=== PATIENT | male | born 1960 | race Two or more races ===

== ENCOUNTER → 2019-11-01 | Outpatient (CLI) | payer OTHER ==
[~2019-11-01] MED LIST: CAPT12.52; CAPT25TA5 OR; GLYB5TAB66; GLYB5TAB8 OR; METF-370; METF1000 OR
[2019-11-01 08:07] LABS: Basophils # (auto) 0 uL; Eosinophils # (auto) 0.1 uL; Mean Corpuscular Hemoglobin 27.9 pg (28.0-32.0); Mean Corpuscular Hgb Conc. 34.3 g/dL (32.0-36.0); Monocytes # (auto) 0.4 uL; Monocytes % (auto) 8.6 % (0.0-12.0)
[2019-11-01 08:11] LABS: Basophils % (auto) 0.7 % (0.0-2.0); Eosinophils % (auto) 3.1 % (0.0-7.0); Hematocrit 51.6 % (41.0-53.0); Hemoglobin 17.7 g/dL (13.5-17.5); Lymphocytes # (auto) 1.3 uL; Lymphocytes % (auto) 30.1 % (10.0-50.0); Mean Corpuscular Volume 81.2 fL (80.0-100.0); Neutrophils # (auto) 2.6 uL; Neutrophils % (auto) 57.5 % (37.0-80.0); Nucleated Red Blood Cells % 0.6 %; Platelet Count (auto) 214 10^3/uL (140-450); Red Blood Cells 6.36 10^6/uL (4.5-5.90); Red Cell Distribution Width 16.5 % (11.8-14.3); White Blood Cell 4.5 10^3/uL (4.4-10.8)
[2019-11-01 08:30] LABS: Protein, Urine 30.7 mg/dL (0.0-11.9); Urine Bacteria NONE SEEN /hpf (None Seen); Urine Blood Negative /uL (Negative); Urine Specific Gravity 1.013 (1.001-1.035); Urine WBC <1 /hpf (0 - 3)
[2019-11-01 08:32] LABS: Albumin 3.5 g/dL (3.4-5.0); Potassium 4.4 mmol/L (3.5-5.1)
[2019-11-01 08:38] LABS: BUN/Creatinine Ratio 18.1; Bilirubin, Total 0.5 mg/dL (0.2-1.0)
== END | disposition home or self-care (01) ==
LOC: LAB 07:11
PROVIDERS: ATTEND Internal Medicine Nephrology
DX: E11.9 Type 2 diabetes mellitus without complications (principal); I10 Essential (primary) hypertension; N52.9 Male erectile dysfunction, unspecified; Z86.73 Personal history of transient ischemic attack (TIA), and cerebral infarction without residual deficits
CPT/HCPCS: 36415; 80053; 80061; 81001; 82570; 83036; 84156; 84403; 84439; 84443; 85025

== ENCOUNTER → 2020-03-26 | Outpatient (CLI) | payer OTHER ==
[2020-03-26 09:48] LABS: Basophils # (auto) 0 10 ^3/uL (0-0.2); Basophils % (auto) 0.6 % (0.0-2.0); Eosinophils # (auto) 0.2 10 ^3/uL (0-0.8); Eosinophils % (auto) 3.4 % (0.0-7.0); Hematocrit 45.2 % (41.0-53.0); Hemoglobin 15.4 g/dL (13.5-17.5); Lymphocytes # (auto) 1.4 10 ^3/uL (0.4-5.4); Lymphocytes % (auto) 30.1 % (10.0-50.0); Mean Corpuscular Hemoglobin 29.7 pg (28.0-32.0); Mean Corpuscular Hgb Conc. 33.9 g/dL (32.0-36.0); Mean Corpuscular Volume 87.5 fL (80.0-100.0); Monocytes # (auto) 0.4 10 ^3/uL (0-1.3); Monocytes % (auto) 8.7 % (0.0-12.0); Neutrophils # (auto) 2.7 10 ^3/uL (1.6-8.6); Neutrophils % (auto) 57.2 % (37.0-80.0); Nucleated Red Blood Cells % 0.1 %; Platelet Count (auto) 208 10^3/uL (140-450); Red Blood Cells 5.17 10^6/uL (4.5-5.90); Red Cell Distribution Width 13.2 % (11.8-14.3); White Blood Cell 4.7 10^3/uL (4.4-10.8)
[2020-03-26 09:56] LABS: Urine Amorphous Crystal FEW /hpf (None Seen); Urine Bacteria NONE SEEN /hpf (None Seen); Urine Blood Negative /uL (Negative); Urine Specific Gravity 1.019 (1.001-1.035); Urine Sperm PRESENT /hpf (None Seen); Urine WBC 1 /hpf (0 - 3)
[2020-03-26 10:10] LABS: Albumin 3.7 g/dL (3.4-5.0); Calcium 8.4 mg/dL (8.5-10.1); Potassium 3.9 mmol/L (3.5-5.1)
[2020-03-26 10:13] LABS: BUN/Creatinine Ratio 23.9; Bilirubin, Total 0.4 mg/dL (0.2-1.0); Total Protein 7.5 g/dL (6.4-8.2)
== END | disposition home or self-care (01) ==
LOC: LAB 09:20
PROVIDERS: ATTEND Internal Medicine Nephrology
DX: E11.22 Type 2 diabetes mellitus with diabetic chronic kidney disease (principal); I12.9 Hypertensive chronic kidney disease with stage 1 through stage 4 chronic kidney disease, or unspecified chronic kidney disease; N18.3 Chronic kidney disease, stage 3 (moderate)
CPT/HCPCS: 36415; 80053; 81001; 83036; 85025

== ENCOUNTER → 2020-07-10 | Outpatient (CLI) | payer OTHER ==
[2020-07-12 10:55] LABS: Hepatitis B Surface Antibody Negative
[2020-07-12 13:28] LABS: Hepatitis B Core IgM Negative; Hepatitis B Surface Antigen Negative (Negative)
== END | disposition home or self-care (01) ==
LOC: LAB 08:17
PROVIDERS: ATTEND Internal Medicine Nephrology
DX: E11.9 Type 2 diabetes mellitus without complications (principal); I10 Essential (primary) hypertension; Z86.19 Personal history of other infectious and parasitic diseases
CPT/HCPCS: 36415; 83036; 86703; 86705; 86706; 86803; 87340

== ENCOUNTER 2020-07-24 01:59 | Emergency (ER) | payer OTHER ==
[~2020-07-24] VITALS: Ht 185.4 cm; Wt 77.1 kg
[2020-07-24] MEDS ORDERED: ONDANSETRON HCL 4 MG/2 ML VIAL IV ONE (02:30)
[2020-07-24] MEDS ORDERED: MORPHINE SULFATE 4 MG/ML SYR/VIAL IV ONE (02:30)
[2020-07-24 03:47] LABS: Basophils # (auto) 0 10 ^3/uL (0-0.2); Basophils % (auto) 0.2 % (0.0-2.0); Eosinophils # (auto) 0 10 ^3/uL (0-0.8); Hematocrit 44.9 % (41.0-53.0); Hemoglobin 15.1 g/dL (13.5-17.5); Lymphocytes # (auto) 0.5 10 ^3/uL (0.4-5.4); Lymphocytes % (auto) 3.4 % (10.0-50.0); Mean Corpuscular Hemoglobin 29.5 pg (28.0-32.0); Mean Corpuscular Hgb Conc. 33.7 g/dL (32.0-36.0); Mean Corpuscular Volume 87.5 fL (80.0-100.0); Monocytes # (auto) 0.4 10 ^3/uL (0-1.3); Monocytes % (auto) 3.1 % (0.0-12.0); Neutrophils # (auto) 13.5 10 ^3/uL (1.6-8.6); Neutrophils % (auto) 93.3 % (37.0-80.0); Platelet Count (auto) 232 10^3/uL (140-450); Red Blood Cells 5.14 10^6/uL (4.5-5.90); Red Cell Distribution Width 13.6 % (11.8-14.3); White Blood Cell 14.4 10^3/uL (4.4-10.8)
[2020-07-24 04:07] LABS: INR 0.92 (0.9-1.15)
[2020-07-24 04:10] LABS: Chloride 104 mmol/L (98-107); Potassium 3.9 mmol/L (3.5-5.1); Sodium 134 mmol/L (136-145)
[2020-07-24 04:13] LABS: Urine Bacteria NONE SEEN /hpf (None Seen); Urine Blood Negative /uL (Negative); Urine Specific Gravity 1.017 (1.001-1.035); Urine WBC <1 /hpf (0 - 3)
[2020-07-24 04:19] LABS: Alanine Aminotransferase 22 U/L (16-61); Albumin 4.1 g/dL (3.4-5.0); Alkaline Phosphatase 72 U/L (45-117); Amylase 29 U/L (25-115); Anion Gap 11 (5-15); Aspartate Aminotransferase 16 U/L (15-37); BUN/Creatinine Ratio 20.4; Bilirubin, Total 0.6 mg/dL (0.2-1.0); Blood Urea Nitrogen 20 mg/dL (7-18); Calcium 8.7 mg/dL (8.5-10.1); Carbon Dioxide 19 mmol/L (21-32); GFR African American 100 mL/min; GFR Non-African American 82 mL/min; Glucose 239 mg/dL (74-106); Lipase 84 U/L (73-393); Magnesium 2.5 mg/dL (1.6-2.6); Total Protein 7.9 g/dL (6.4-8.2)
[2020-07-24 05:00] VITALS: BP 125/74
== END 2020-07-24 05:41 | disposition home or self-care (01) ==
LOC: ER 02:01
DX: K59.00 Constipation, unspecified (principal); E11.9 Type 2 diabetes mellitus without complications; E78.5 Hyperlipidemia, unspecified; I10 Essential (primary) hypertension; Z86.73 Personal history of transient ischemic attack (TIA), and cerebral infarction without residual deficits
CPT/HCPCS: 36415; 74176; 80053; 81001; 82150; 83605; 83690; 83735; 84484; 85025; 85610; 85730; 87040; 93005; 96374; 96375; 99285; J2270; J2405

== ENCOUNTER 2022-04-13 13:57 | Emergency (ER) | payer MEDICAID, OTHER ==
[~2022-04-13] VITALS: Ht 172.7 cm; Wt 87.7 kg
[2022-04-13] MEDS ORDERED: HYDROcodone-ACET 10/325MG TAB PO ONE (14:45)
[2022-04-13 16:52] LABS: Basophils # (auto) 0 10 ^3/uL (0-0.2); Basophils % (auto) 0.3 % (0.0-2.0); Eosinophils # (auto) 0 10 ^3/uL (0-0.8); Eosinophils % (auto) 0.5 % (0.0-7.0); Hematocrit 41.8 % (41.0-53.0); Hemoglobin 13.9 g/dL (13.5-17.5); Lymphocytes # (auto) 1.2 10 ^3/uL (0.4-5.4); Lymphocytes % (auto) 12.4 % (10.0-50.0); Mean Corpuscular Hgb Conc. 33.3 g/dL (32.0-36.0); Mean Corpuscular Volume 84.3 fL (80.0-100.0); Monocytes # (auto) 0.6 10 ^3/uL (0-1.3); Neutrophils % (auto) 80.8 % (37.0-80.0); Red Blood Cells 4.96 10^6/uL (4.5-5.90); Red Cell Distribution Width 13.4 % (11.8-14.3); White Blood Cell 9.9 10^3/uL (4.4-10.8)
[2022-04-13 17:08] LABS: Albumin 3.4 g/dL (3.4-5.0); Calcium 8.4 mg/dL (8.5-10.1); Potassium 4.8 mmol/L (3.5-5.1)
[2022-04-13 17:12] LABS: BUN/Creatinine Ratio 20.6
[2022-04-13 17:16] LABS: Bilirubin, Total 0.5 mg/dL (0.2-1.0); Total Protein 7.8 g/dL (6.4-8.2)
[2022-04-13] MEDS ORDERED: CEPH-322 PO (18:46)
[2022-04-13 19:31] VITALS: BP 167/84
== END 2022-04-13 19:30 | disposition home or self-care (01) ==
LOC: ER 13:57
DX: L03.116 Cellulitis of left lower limb (principal); I10 Essential (primary) hypertension; E11.9 Type 2 diabetes mellitus without complications; E78.5 Hyperlipidemia, unspecified; Z86.73 Personal history of transient ischemic attack (TIA), and cerebral infarction without residual deficits; Z79.899 Other long term (current) drug therapy
CPT/HCPCS: 36415; 73700; 80053; 85025; 93971

== ENCOUNTER 2022-06-19 11:09 | Emergency (ER) | payer MEDICAID, OTHER ==
[~2022-06-19] VITALS: Ht 185.4 cm; Wt 88.0 kg
[~2022-06-19 11:09] MED LIST changes: +CEPH-322 PO
[2022-06-19] MEDS ORDERED: HYDROcodone-ACET 5/325MG TAB PO ONE (11:45)
[2022-06-19] MEDS ORDERED: METHOCARBAMOL 500 MG TAB PO ONE (11:45)
[2022-06-19] MEDS ORDERED: KETOROLAC TROMETH 60MG/2ML VIAL IM ONE (11:45)
[2022-06-19 13:51] VITALS: BP 173/86
[2022-06-19] MEDS ORDERED: ACET-1304 PO ×2 (14:04→17:37)
[2022-06-19] MEDS ORDERED: METH500T22 PO ×2 (14:04→17:37)
[2022-06-19] MEDS ORDERED: IBUP800T27 PO ×2 (14:04→17:37)
== END 2022-06-19 17:25 | disposition home or self-care (01) ==
LOC: EDBD 11:09 → ER 11:09
DX: S16.1XXA Strain of muscle, fascia and tendon at neck level, initial encounter (principal); S63.502A Unspecified sprain of left wrist, initial encounter; S43.402A Unspecified sprain of left shoulder joint, initial encounter; S80.01XA Contusion of right knee, initial encounter; E11.9 Type 2 diabetes mellitus without complications; E78.5 Hyperlipidemia, unspecified; I10 Essential (primary) hypertension; Z86.73 Personal history of transient ischemic attack (TIA), and cerebral infarction without residual deficits; V43.62XA Car passenger injured in collision with other type car in traffic accident, initial encounter; Y93.89 Activity, other specified; Y92.488 Other paved roadways as the place of occurrence of the external cause; Y99.8 Other external cause status
CPT/HCPCS: 70450; 72125; 73030; 73110; 73130; 73562; 82962; 96372; 99284; J1885

== ENCOUNTER 2023-12-28 10:02 | Day surgery (SDC) | payer MEDICAID ==
[~2023-12-28] VITALS: Ht 185.4 cm; Wt 93.0 kg
[2023-12-28] VITALS (10 sets, daily range): BP systolic 119–159; BP diastolic 67–85; PULSE 57–61; RESP 10–15; TEMP 98.1; O2SAT 93–96
[~2023-12-28 10:02] MED LIST changes: +ACET-1304 PO; +AMLO1TAB23 PO; -CAPT12.52; -CAPT25TA5 OR; -CEPH-322 PO; +CEPH250C PO; -GLYB5TAB66; -GLYB5TAB8 OR; +HYDR25TA4 PO; +HYDR25TA88 PO; +IBUP-1456 PO; +INSU1INJ19 SC; +LISI40TA16 PO; +MELA1DRO PO; -METF-370; -METF1000 OR; +METH-1181 PO
[2023-12-28] MEDS ORDERED: IODIXANOL 320MG/ML 100ML BTL IV ONE (10:52)
[2023-12-28] MEDS ORDERED: LIDOCAINE 2%HCL (LOCAL ANESTH.) INJ 20ML MDV ONE (10:52)
[2023-12-28] MEDS ORDERED: SODIUM CHL 0.9% 50 ML ONE (11:14)
[2023-12-28] MEDS ORDERED: ANGIOMAX 250 MG VIAL IV ONE (11:14)
[2023-12-28] MEDS ORDERED: MIDAZOLAM HCL 2MG/2ML 2ml VIAL (1mg/ml) ONE (11:14)
[2023-12-28] MEDS ORDERED: fentaNYL CITRATE 100 MCG/2 ML VL ONE (11:14)
[2023-12-28] MEDS ORDERED: ASPirin 81 mg TAB ONE (12:28)
[2023-12-28] MEDS ORDERED: CLOPIDOGREL BISULFATE 75 MG TAB ONE (12:30)
[2023-12-28] MEDS ORDERED: HYDROmorphone HCL 2 MG/ML VL/or syr ONE (12:38)
[2023-12-28] MEDS ORDERED: CLOPIDOGREL BISULFATE 75 MG TAB PO ONE (12:52)
[2023-12-28] MEDS: CLOPIDOGREL BISULFATE 75 MG TAB ONE (12:59)
== END 2023-12-28 15:18 | disposition home or self-care (01) ==
LOC: CATH 10:02
PROVIDERS: ATTEND Internal Medicine
DX: E11.51 Type 2 diabetes mellitus with diabetic peripheral angiopathy without gangrene (principal); I70.92 Chronic total occlusion of artery of the extremities; I73.9 Peripheral vascular disease, unspecified; I10 Essential (primary) hypertension; E78.00 Pure hypercholesterolemia, unspecified; Z86.73 Personal history of transient ischemic attack (TIA), and cerebral infarction without residual deficits; Z79.899 Other long term (current) drug therapy; Z98.890 Other specified postprocedural states; Z82.49 Family history of ischemic heart disease and other diseases of the circulatory system
CPT/HCPCS: 36247; 75716; 93005; C1725; C1760; C1769; C1887; C1894; C9764; C9772; J0583; J1170; J1644; J2250; J3010; Q9967; 99152; 99153

== ENCOUNTER 2024-03-13 23:46 | Inpatient (IN) | payer MEDICAID ==
[~2024-03-13] VITALS: Ht 185.4 cm; Wt 97.6 kg
[~2024-03-13 23:46] MED LIST changes: +ASPI1CHW5 PO; +CLOP75TA70 PO; +SEMA4INJ SC
[2024-03-14] VITALS (9 sets, daily range): BP systolic 142–149; BP diastolic 71–76; PULSE 73–91; RESP 18–20; TEMP 97.5–97.9; O2SAT 92–95
[2024-03-14] MEDS: ALBUTEROL SULF 2.5 MG/0.5ML(0.5%) NEB SOLN NEB ONE (00:24)
[2024-03-14] MEDS: IPRATROPIUM BROM 0.5 MG/2.5ML INH SOL NEB ONE (00:24)
[2024-03-14 00:34] LABS: Basophils # (auto) 0 10 ^3/uL (0-0.2); Basophils % (auto) 0.2 % (0.0-2.0); Eosinophils # (auto) 0 10 ^3/uL (0-0.8); Eosinophils % (auto) 0.2 % (0.0-7.0); Hematocrit 42.8 % (41.0-53.0); Hemoglobin 14.8 g/dL (13.5-17.5); Lymphocytes # (auto) 0.5 10 ^3/uL (0.4-5.4); Mean Corpuscular Hemoglobin 29.5 pg (28.0-32.0); Mean Corpuscular Hgb Conc. 34.5 g/dL (32.0-36.0); Mean Corpuscular Volume 85.4 fL (80.0-100.0); Monocytes # (auto) 0.6 10 ^3/uL (0-1.3); Monocytes % (auto) 3.7 % (0.0-12.0); Neutrophils # (auto) 14.2 10 ^3/uL (1.6-8.6); Neutrophils % (auto) 92.9 % (37.0-80.0); Red Blood Cells 5.01 10^6/uL (4.5-5.90); Red Cell Distribution Width 13.5 % (11.8-14.3); White Blood Cell 15.3 10^3/uL (4.4-10.8)
[2024-03-14 00:56] LABS: Alanine Aminotransferase 16 U/L (7-40); Albumin 4.3 g/dL (3.2-4.8); Alkaline Phosphatase 88 U/L (46-116); Anion Gap 10 (5-15); Aspartate Aminotransferase 13 U/L (13-40); BUN/Creatinine Ratio 17.2 (10.0-20.0); Blood Urea Nitrogen 17 mg/dL (9-23); Calcium 9.5 mg/dL (8.7-10.4); Carbon Dioxide 20 mmol/L (20-30); Chloride 104 mmol/L (98-107); Glucose 298 mg/dL (74-106); Lipase 30 U/L (12-53); Potassium 3.9 mmol/L (3.5-5.1); Sodium 134 mmol/L (136-145)
[2024-03-14 00:57] LABS: Bilirubin, Total 0.4 mg/dL (0.2-1.0); Total Protein 7.5 g/dL (5.7-8.2)
[2024-03-14 01:04] LABS: Lactic Acid w/Reflex 2.8 mmol/L (0.4-2.0)
[2024-03-14 01:12] LABS: Rapid Influenza A Negative (Negative); Rapid Influenza B Negative (Negative)
[2024-03-14 01:13] LABS: COVID19 ANTIGEN SOFIA FIA NEGATIVE (NEGATIVE)
[2024-03-14] MEDS: DexAMETHasone SOD PHOS 10MG/1ML VIAL INJ IM ONE (03:17)
[2024-03-14] MEDS: ONDANSETRON HCL 4 MG/2 ML VIAL IM ONE (03:18)
[2024-03-14] MEDS: ACETAMINOPHEN 500 MG TAB PO ONE (03:21)
[2024-03-14] MEDS: SODIUM CHLORIDE 0.9% 1,000 ML IV ONE ×2 (03:35→06:40)
[2024-03-14] MEDS: cefTRIAXone 1GM/50ML D5W 50 ML IV ONE (03:59)
[2024-03-14 04:17] LABS: Urine Bacteria None Seen /hpf (None Seen)
[2024-03-14 04:26] LABS: Urine Blood Negative /uL (Negative); Urine Clarity Clear (Clear); Urine Color Light-Yellow (Yellow); Urine Protein, UAD 1+ (Negative); Urine Specific Gravity 1.021 (1.001-1.035); Urine Urobilinogen Normal (Negative); Urine WBC 1 /hpf (0 - 3)
[2024-03-14] MEDS ORDERED: ACETAMINOPHEN 325 MG TAB PO PRN (05:45)
[2024-03-14] MEDS ORDERED: NITROGLYCERIN 0.4 MG SL TAB SL PRN (05:45)
[2024-03-14] MEDS ORDERED: ALBUTEROL SULF 2.5 MG/0.5ML(0.5%) NEB SOLN NEB PRN (05:45)
[2024-03-14] MEDS ORDERED: IPRATROPIUM BROM 0.5 MG/2.5ML INH SOL NEB PRN (05:45)
[2024-03-14] MEDS ORDERED: MORPHINE SULFATE INJ 2 MG/ml SYRG IV PRN ×2 (05:45)
[2024-03-14] MEDS: AZITHROMYCIN 250 MG TAB PO ONE (05:53)
[2024-03-14] MEDS ORDERED: DEXTROSE (50%) 50ML SYRG IV PRN (06:15)
[2024-03-14] MEDS: HYDROcodone-ACET 5/325MG TAB PO PRN (06:39)
[2024-03-14] MEDS: ENOXAPARIN SOD 100 MG/1 ML SYRINGE SC SCH (06:40)
[2024-03-14] MEDS: ACCU-CHEK COMFORT CURVE STRIP VI SCH (06:51)
[2024-03-14] MEDS: InsuLIN REG 1unit/0.01ml Soln (100units/ml) SC SCH (06:57)
[2024-03-14] MEDS: cefTRIAXone 1GM/50ML D5W 50 ML IV SCH (08:39)
[2024-03-14] MEDS: SODIUM CHLORIDE 0.9% 1,000 ML IV SCH (09:00)
[2024-03-14] MEDS: ASPirin 81 mg TAB PO SCH (09:59)
[2024-03-14] MEDS: AZITHROMYCIN 500MG/ 250ML 250 ML IV SCH (10:00)
[2024-03-14] MEDS: ATORVASTATIN 20 MG TAB PO SCH (10:00)
[2024-03-14 10:41] LABS: Lactic Acid w/Reflex 2.7 mmol/L (0.4-2.0)
[2024-03-14] MEDS ORDERED: FLUT0.05 NAS (14:00)
[2024-03-15] VITALS (7 sets, daily range): BP systolic 142–156; BP diastolic 70–79; PULSE 61–72; RESP 17–21; TEMP 97.4–98; O2SAT 92–98
[2024-03-15 06:52] LABS: Anion Gap 12 (5-15); Calcium 9.5 mg/dL (8.7-10.4); Carbon Dioxide 17 mmol/L (20-30); Chloride 104 mmol/L (98-107); Potassium 4.1 mmol/L (3.5-5.1); Sodium 133 mmol/L (136-145)
[2024-03-15 06:58] LABS: Glucose 238 mg/dL (74-106)
[2024-03-15 06:59] LABS: BUN/Creatinine Ratio 17.5 (10.0-20.0); Blood Urea Nitrogen 14 mg/dL (9-23)
[2024-03-15 07:12] LABS: Hematocrit 40.6 % (41.0-53.0); Hemoglobin 14.2 g/dL (13.5-17.5); Mean Corpuscular Hemoglobin 29.5 pg (28.0-32.0); Mean Corpuscular Hgb Conc. 34.9 g/dL (32.0-36.0); Mean Corpuscular Volume 84.6 fL (80.0-100.0); Red Cell Distribution Width 13.9 % (11.8-14.3); White Blood Cell 20.8 10^3/uL (4.4-10.8)
[2024-03-15 07:18] LABS: Band Neutrophils % (manual) 0; Basophils % (manual) 0 (0.0-2.0); Blast Cells 0; Eosinophils % (manual) 0 (0-7); Metamyelocytes % 0; Myelocytes % 0; Promyelocytes % 0; Reactive Lymphocytes 0
[2024-03-15 09:34] LABS: Lymphocytes % (manual) 2 (10.0-50.0); Monocytes % (manual) 5 (0-12); Platelet Estimate Adequate
[2024-03-15] MEDS ORDERED: FLUT1INH27 INH (13:14)
[2024-03-15] MEDS ORDERED: ALBU108A5 INH (13:20)
[2024-03-16] VITALS (10 sets, daily range): BP systolic 126–159; BP diastolic 68–79; PULSE 57–73; RESP 16–18; TEMP 97.4–98.7; O2SAT 90–98
[2024-03-16] MEDS: hydrALAZINE HCL 20 MG/ML VL IV PRN (06:22)
[2024-03-16 06:55] LABS: Basophils # (auto) 0.1 10 ^3/uL (0-0.2); Basophils % (auto) 0.7 % (0.0-2.0); Eosinophils # (auto) 0.1 10 ^3/uL (0-0.8); Eosinophils % (auto) 0.5 % (0.0-7.0); Hematocrit 43.4 % (41.0-53.0); Hemoglobin 15.1 g/dL (13.5-17.5); Lymphocytes # (auto) 1.7 10 ^3/uL (0.4-5.4); Lymphocytes % (auto) 17.9 % (10.0-50.0); Mean Corpuscular Hemoglobin 29.5 pg (28.0-32.0); Mean Corpuscular Hgb Conc. 34.9 g/dL (32.0-36.0); Mean Corpuscular Volume 84.5 fL (80.0-100.0); Monocytes # (auto) 0.5 10 ^3/uL (0-1.3); Monocytes % (auto) 5.6 % (0.0-12.0); Neutrophils # (auto) 7.3 10 ^3/uL (1.6-8.6); Neutrophils % (auto) 75.3 % (37.0-80.0); Nucleated Red Blood Cells % 0.1 %; Red Blood Cells 5.13 10^6/uL (4.5-5.90); Red Cell Distribution Width 13.5 % (11.8-14.3); White Blood Cell 9.8 10^3/uL (4.4-10.8)
[2024-03-16 06:56] LABS: Anion Gap 10 (5-15); Carbon Dioxide 24 mmol/L (20-30); Chloride 102 mmol/L (98-107); Potassium 3.9 mmol/L (3.5-5.1); Sodium 136 mmol/L (136-145)
[2024-03-16 06:57] LABS: Calcium 9.4 mg/dL (8.7-10.4)
[2024-03-16 07:02] LABS: BUN/Creatinine Ratio 16.1 (10.0-20.0); Blood Urea Nitrogen 14 mg/dL (9-23); Glucose 205 mg/dL (74-106)
[2024-03-16] MEDS: DOCUSATE SOD 100 MG CAP PO PRN (10:24)
[2024-03-16] MEDS: ONDANSETRON HCL 4 MG/2 ML VIAL IV PRN (12:40)
[2024-03-17] VITALS (10 sets, daily range): BP systolic 148–160; BP diastolic 79–87; PULSE 68–76; RESP 16–18; TEMP 97.9–98.9; O2SAT 90–98
[2024-03-17 07:13] LABS: Basophils # (auto) 0 10 ^3/uL (0-0.2); Basophils % (auto) 0.7 % (0.0-2.0); Eosinophils # (auto) 0.1 10 ^3/uL (0-0.8); Eosinophils % (auto) 1.3 % (0.0-7.0); Hemoglobin 14.9 g/dL (13.5-17.5); Lymphocytes # (auto) 1.5 10 ^3/uL (0.4-5.4); Lymphocytes % (auto) 23.9 % (10.0-50.0); Mean Corpuscular Hemoglobin 29.3 pg (28.0-32.0); Mean Corpuscular Hgb Conc. 34.8 g/dL (32.0-36.0); Mean Corpuscular Volume 84.3 fL (80.0-100.0); Monocytes # (auto) 0.4 10 ^3/uL (0-1.3); Monocytes % (auto) 7.1 % (0.0-12.0); Neutrophils # (auto) 4.1 10 ^3/uL (1.6-8.6); Nucleated Red Blood Cells % 0.1 %; Red Cell Distribution Width 13.6 % (11.8-14.3); White Blood Cell 6.1 10^3/uL (4.4-10.8)
[2024-03-17 07:22] LABS: Chloride 104 mmol/L (98-107); Potassium 3.8 mmol/L (3.5-5.1); Sodium 134 mmol/L (136-145)
[2024-03-17 07:23] LABS: Anion Gap 6 (5-15); Carbon Dioxide 24 mmol/L (20-30)
[2024-03-17 07:28] LABS: Glucose 230 mg/dL (74-106)
[2024-03-17 07:29] LABS: BUN/Creatinine Ratio 16.9 (10.0-20.0); Blood Urea Nitrogen 14 mg/dL (9-23)
[2024-03-17 09:14] LABS: Hepatitis B Surface Antigen Negative (Negative)
[2024-03-17 09:35] LABS: Hepatitis C Antibody Negative (Negative)
[2024-03-18] VITALS (7 sets, daily range): BP systolic 113–149; BP diastolic 70–81; PULSE 68–89; RESP 18; TEMP 97.4–98.4; O2SAT 92–96
[2024-03-18 05:55] LABS: Basophils # (auto) 0 10 ^3/uL (0-0.2); Basophils % (auto) 0.5 % (0.0-2.0); Eosinophils # (auto) 0.1 10 ^3/uL (0-0.8); Eosinophils % (auto) 1.6 % (0.0-7.0); Hematocrit 43.8 % (41.0-53.0); Hemoglobin 15.6 g/dL (13.5-17.5); Lymphocytes # (auto) 1.4 10 ^3/uL (0.4-5.4); Lymphocytes % (auto) 20.8 % (10.0-50.0); Mean Corpuscular Hemoglobin 30.1 pg (28.0-32.0); Mean Corpuscular Hgb Conc. 35.7 g/dL (32.0-36.0); Mean Corpuscular Volume 84.4 fL (80.0-100.0); Monocytes # (auto) 0.5 10 ^3/uL (0-1.3); Monocytes % (auto) 7.6 % (0.0-12.0); Neutrophils # (auto) 4.6 10 ^3/uL (1.6-8.6); Neutrophils % (auto) 69.5 % (37.0-80.0); Nucleated Red Blood Cells % 0.1 %; Red Blood Cells 5.19 10^6/uL (4.5-5.90); Red Cell Distribution Width 13.6 % (11.8-14.3); White Blood Cell 6.6 10^3/uL (4.4-10.8)
[2024-03-18 06:04] LABS: Anion Gap 10 (5-15); Carbon Dioxide 21 mmol/L (20-30); Chloride 104 mmol/L (98-107); Potassium 3.8 mmol/L (3.5-5.1); Sodium 135 mmol/L (136-145)
[2024-03-18 06:05] LABS: Calcium 9.3 mg/dL (8.7-10.4)
[2024-03-18 06:10] LABS: Blood Urea Nitrogen 10 mg/dL (9-23); Glucose 226 mg/dL (74-106)
[2024-03-18] MEDS ORDERED: ATOR20TA50 PO (16:06)
[2024-03-18] MEDS ORDERED: ASPI-325 PO (16:06)
[2024-03-18] MEDS ORDERED: AUG875T PO (16:06)
== END 2024-03-18 17:00 | disposition home health service (06) | DRG 137 ==
LOC: ER 23:46 → TELE 03-14 06:13 → TELE-CENTR 03-14 06:13
PROVIDERS: ADMIT Nurse Practitioner Family; ATTEND Internal Medicine
DX: J15.69 Pneumonia due to other Gram-negative bacteria (principal); I21.A1 Myocardial infarction type 2; E11.51 Type 2 diabetes mellitus with diabetic peripheral angiopathy without gangrene; E86.0 Dehydration; J15.9 Unspecified bacterial pneumonia; E11.65 Type 2 diabetes mellitus with hyperglycemia; R09.02 Hypoxemia; Z20.822 Contact with and (suspected) exposure to COVID-19; E66.9 Obesity, unspecified; I10 Essential (primary) hypertension; K59.00 Constipation, unspecified; Z79.1 Long term (current) use of non-steroidal anti-inflammatories (NSAID); Z79.899 Other long term (current) drug therapy; Z86.73 Personal history of transient ischemic attack (TIA), and cerebral infarction without residual deficits; Z68.28 Body mass index [BMI] 28.0-28.9, adult; Z79.84 Long term (current) use of oral hypoglycemic drugs
CPT/HCPCS: 36415; 71045; 71250; 74176; 80048; 80053; 81001; 82962; 83036; 83605; 83690; 83880; 84484; 85007; 85025; 85027; 86803; 87040; 87086; 87340; 87426; 87804; 93005; 93306; 94640; 96365; 96366; 96367; 96372; G0378; J1100; J1815; J2405

== ENCOUNTER 2024-05-16 06:58 | Day surgery (SDC) | payer MEDICAID ==
[2024-05-16] VITALS (8 sets, daily range): BP systolic 128–164; BP diastolic 55–83; PULSE 61–65; RESP 10–14; TEMP 98; O2SAT 93–96
[~2024-05-16] VITALS: Ht 185.4 cm; Wt 88.5 kg
[~2024-05-16 06:58] MED LIST changes: +ALBU108A5 INH; +ATOR20TA50 PO; -CEPH250C PO; +FLUT1INH27 INH; +GABA-339 PO; -HYDR25TA4 PO; -HYDR25TA88 PO; -IBUP-1456 PO; -METH-1181 PO; -SEMA4INJ SC
[2024-05-16] MEDS ORDERED: ANGIOMAX 250 MG VIAL IV ONE (09:05)
[2024-05-16] MEDS ORDERED: fentaNYL CITRATE 100 MCG/2 ML VL ONE (09:06)
[2024-05-16] MEDS ORDERED: HEPARIN SODIUM (PORCINE) 5000 UNITS/ML 1ML VIAL ONE (09:06)
[2024-05-16] MEDS ORDERED: VERAPAMIL 2.5MG/ML INJ 2ML VIAL IV ONE (09:06)
[2024-05-16] MEDS ORDERED: IODIXANOL 320MG/ML 100ML BTL IV ONE (09:06)
[2024-05-16] MEDS ORDERED: LIDOCAINE 2%HCL (LOCAL ANESTH.) INJ 20ML MDV ONE (09:06)
[2024-05-16] MEDS ORDERED: SODIUM CHL 0.9% 0 ML ONE (09:06)
[2024-05-16] MEDS ORDERED: MIDAZOLAM HCL 2MG/2ML 2ml VIAL (1mg/ml) ONE (09:06)
== END 2024-05-16 12:32 | disposition home or self-care (01) ==
LOC: CATH 06:58
PROVIDERS: ATTEND Internal Medicine
DX: I25.10 Atherosclerotic heart disease of native coronary artery without angina pectoris (principal); E11.9 Type 2 diabetes mellitus without complications; E78.00 Pure hypercholesterolemia, unspecified; I73.9 Peripheral vascular disease, unspecified; I25.2 Old myocardial infarction; Z79.82 Long term (current) use of aspirin; Z79.01 Long term (current) use of anticoagulants; Z79.4 Long term (current) use of insulin; Z87.891 Personal history of nicotine dependence
CPT/HCPCS: 93458; C1769; C1894; J1644; J2250; J3010; J7030; Q9967; 99152

== ENCOUNTER 2024-09-05 15:02 | Inpatient (IN) | payer MEDICARE, MEDICAID ==
[~2024-09-05] VITALS: Ht 185.4 cm; Wt 86.5 kg
[2024-09-05] MEDS: SODIUM CHLORIDE 0.9% 1,000 ML IV ONE (03:14)
--- NOTE | 2024-09-05 16:37 | DVH ---
CHEST RADIOGRAPH Indication: sob Technique: Single frontal view of the chest was obtained COMPARISON: XY CHEST PORTABLE on DOS: 03/14/24 FINDINGS: Lines and Tubes: Sternal wires in place Lungs: Clear Pleura: No effusion. No pneumothorax. Cardiomediastinal contours: Unremarkable Bones: Unremarkable IMPRESSION: 1. No acute disease.
[2024-09-05 17:12] LABS: Basophils # (auto) 0 10 ^3/uL (0-0.2); Basophils % (auto) 0.5 % (0.0-2.0); Eosinophils # (auto) 0 10 ^3/uL (0-0.8); Eosinophils % (auto) 0.3 % (0.0-7.0); Hemoglobin 15.6 g/dL (13.5-17.5); Lymphocytes # (auto) 0.8 10 ^3/uL (0.4-5.4); Lymphocytes % (auto) 13.6 % (10.0-50.0); Mean Corpuscular Hemoglobin 28.8 pg (28.0-32.0); Mean Corpuscular Hgb Conc. 33.9 g/dL (32.0-36.0); Mean Corpuscular Volume 84.8 fL (80.0-100.0); Monocytes # (auto) 0.6 10 ^3/uL (0-1.3); Monocytes % (auto) 10.3 % (0.0-12.0); Neutrophils # (auto) 4.7 10 ^3/uL (1.6-8.6); Neutrophils % (auto) 75.3 % (37.0-80.0); Platelet Count (auto) 212 10^3/uL (140-450); Red Blood Cells 5.42 10^6/uL (4.5-5.90); Red Cell Distribution Width 14.8 % (11.8-14.3); White Blood Cell 6.2 10^3/uL (4.4-10.8)
[2024-09-05 17:18] LABS: Anion Gap 10 (5-15); Aspartate Aminotransferase 34 U/L (13-40); Carbon Dioxide 23 mmol/L (20-31); Potassium 4.6 mmol/L (3.5-5.1)
[2024-09-05 17:19] LABS: Bilirubin, Total 0.4 mg/dL (0.2-1.0)
[2024-09-05 17:32] LABS: Alanine Aminotransferase 45 U/L (7-40); Albumin 4.9 g/dL (3.2-4.8); Alkaline Phosphatase 118 U/L (46-116); Blood Urea Nitrogen 39 mg/dL (9-23); Chloride 97 mmol/L (98-107); Glucose 340 mg/dL (74-106); Sodium 130 mmol/L (136-145); Total Protein 8.4 g/dL (5.7-8.2)
--- NOTE | 2024-09-05 18:15 | ED.PDOC ---
History of Present Illness HPI Comments 64 y/o M presents with c/o generalized weakness and shortness of breath w/exertion for the past 3x days, today. Patient endorses on symptoms progressively worsening of the past 3x days since initial, unprovoked onset. He admits to recent Hx of 4xCABG that was performed at [facility] in [place], [place]. He denies any chest pain, palpitations, cough, or other associated symptoms or modifiers at this time. Chief Complaint: General Weakness Time Seen by MD: 16:20 Primary Care Provider: UNKNOWN Reviewed Notes: Nurses Notes, Medications, Allergies Allergies: Coded Allergies: NO KNOWN ALLERGIES (Unverified , 12/22/23) Home Meds Active Scripts Atorvastatin Calcium (ATORVASTATIN CALCIUM) 20 Mg Tab, 10 MG PO DAILY, #30 TAB Prov:RUPAL RAMIREZ MD 03/18/24 Acetaminophen (Tylenol Extra Strength) 500 Mg Tab, 1000 MG PO Q6HPRN PRN, #30 TAB Prov:RADHA SHAY MD 06/19/22 Reported Medications Gabapentin (Gabapentin) 600 Mg Tab, 600 MG PO TID for NEUROPATHY, MG 05/11/24 Albuterol Sulfate (Albuterol Sulfate Hfa) 108 Mcg/Act Aer, 1 PUFF INH QID PRN for COPD 03/15/24 Clopidogrel Bisulfate (CLOPIDOGREL) 75 Mg Tab, 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 03/15/24 Aspirin (Chewable Aspirin) 81 Mg Chw, 1 TAB PO DAILY for CAD 03/15/24 Fluticasone Furoate-Vilanterol (Fluticasone Furoate/Vilan 100-25 Mcg/Act) 1 Inh Inh, 1 PUFF INH DAILY 03/15/24 Melatonin (Melatonin) 5 Mg/Ml Jim, 5 MG PO HS PRN for FOR INSOMNIA 12/22/23 Lisinopril (Lisinopril) 40 Mg Tab, 1 TAB PO DAILY for HYPERTENSION 12/22/23 Amlodipine Besylate (Amlodipine Besylate) 10 Mg Tab, 1 TAB PO QPM for HYPERTENSION 12/22/23 Insulin Glargine (Basaglar Kwikpen) 100 Unit/Ml Inj, 50 UNIT SC DAILY for DIABETES 12/22/23 Information Source: Patient Mode of Arrival: Ambulatory Severity: Moderate Timing: Days Duration: Since onset Prehospital treatment: None Past Medical History PAST MEDICAL HISTORY: CVA, DM, High Lipids, HTN Surgical History: CABG Family History Family History: Reviewed,noncontributory to illness Social History Smoker: Non-Smoker Alcohol: Rarely Drugs: Denies Drug Use Lives In: Home Respiratory: reports: SOB with excertion Neurological: reports: weakness All Other Systems: Reviewed and Negative (negative unless otherwise stated above or in HPI) Physical Exam General Appearance: Mild Distress, Normal HEENT: Normal ENT Inspection, Pharynx Normal, TMs Normal Neck: Full Range of Motion, Non-Tender, Normal, Normal Inspection Respiratory: Chest Non-Tender, Lungs Clear, No Accessory Muscle Use, Normal Breath Sounds, Other (become short of breath with less than 20 steps) Cardiovascular: No Edema, No JVD, No Murmur, No Gallop, Normal Peripheral Pulses, Regular Rate/Rhythm Breast Exam: Deferred Gastrointestinal: No Organomegaly, Non Tender, No Pulsatile Mass, Normal Bowel Sounds, Soft Genitalia: Deferred Pelvic: Deferred Rectal: Deferred Extremities: No calf tenderness, Normal capillary refill, Normal inspection, Normal range of motion, Non-tender, No pedal edema Musculoskeletal : Apperance: Normal Neurologic: Alert, regional driver II-XII nml as Tested, No Motor Deficits, Normal Affect, Normal Mood, No Sensory Deficits Cerebellar Function: Normal Reflexes: Normal Skin: Dry, Normal Color, Warm Lymphatic: No Adenopathy Was a procedure done? Was a procedure done?: No Differential Dx Considerations may include: electrolyte imbalance, dehydration, URI, PNA, pleural effusions X-Ray, Labs, Meds, VS Vital Signs Date Time Temp Pulse Resp B/P (MAP) Pulse Ox O2 Delivery O2 Flow Rate FiO2 09/05/24 16:00 98.0 83 18 131/70 (90) 98 09/05/24 15:42 74 Lab Test 09/05/24 17:40 09/05/24 16:32 Range/Units Troponin I High Sensitivity 5 5 </=54 ng/L White Blood Count 6.2 4.4-10.8 10^3/uL Red Blood Count 5.42 4.5-5.90 10^6/uL Hemoglobin 15.6 13.5-17.5 g/dL Hematocrit 46.0 41.0-53.0 % Mean Corpuscular Volume 84.8 80.0-100.0 fL Mean Corpuscular Hemoglobin 28.8 28.0-32.0 pg Mean Corpuscular Hemoglobin Concent 33.9 32.0-36.0 g/dL Red Cell Distribution Width 14.8 H 11.8-14.3 % Platelet Count 212 140-450 10^3/uL Mean Platelet Volume 9.1 6.9-10.8 fL Neutrophils (%) (Auto) 75.3 37.0-80.0 % Lymphocytes (%) (Auto) 13.6 10.0-50.0 % Monocytes (%) (Auto) 10.3 0.0-12.0 % Eosinophils (%) (Auto) 0.3 0.0-7.0 % Basophils (%) (Auto) 0.5 0.0-2.0 % Neutrophils # (Auto) 4.7 1.6-8.6 10 ^3/uL Lymphocytes # (Auto) 0.8 0.4-5.4 10 ^3/uL Monocytes # (Auto) 0.6 0-1.3 10 ^3/uL Eosinophils # (Auto) 0 0-0.8 10 ^3/uL Basophils # (Auto) 0 0-0.2 10 ^3/uL Nucleated Red Blood Cells 0.0 % Sodium Level 130 L 136-145 mmol/L Potassium Level 4.6 3.5-5.1 mmol/L Chloride Level 97 L 98-107 mmol/L Carbon Dioxide Level 23 20-31 mmol/L Anion Gap 10 5-15 Blood Urea Nitrogen 39 H 9-23 mg/dL Creatinine 2.43 H 0.700-1.30 mg/dL Glomerular Filtration Rate Calc 29 >90 mL/min BUN/Creatinine Ratio 16.0 10.0-20.0 Serum Glucose 340 H 74-106 mg/dL Calcium Level 10.0 8.7-10.4 mg/dL Total Bilirubin 0.4 0.2-1.0 mg/dL Aspartate Amino Transferase (AST) 34 13-40 U/L Alanine Aminotransferase (ALT) 45 H 7-40 U/L Alkaline Phosphatase 118 H 46-116 U/L B-Type Natriuretic Peptide 29.95 0-100 pg/mL Total Protein 8.4 H 5.7-8.2 g/dL Albumin 4.9 H 3.2-4.8 g/dL [facility] [id number] [facility] [id number] Ph: [phone] DIAGNOSTIC IMAGING Diagnostic Imaging Report : [id number] Signed PATIENT: BETSY ASIF ACCT: [id number] UNIT: [id number] : 1960 LOC: ER ROOM / BED: / AGE / SEX: 64 / M ADM STATUS: REG ER SERVICE 1601 ORDERING PHYSICIAN: NICOLE AMADOR PROCEDURE(s): CXRP - CHEST PORTABLE REASON: sob ORDER NUMBER(s): [id number], ACCESSION NUMBER(s): [id number] CHEST RADIOGRAPH Indication: sob Technique: Single frontal view of the chest was obtained COMPARISON: XY CHEST PORTABLE on DOS: 03/14/24 FINDINGS: Lines and Tubes: Sternal wires in place Lungs: Clear Pleura: No effusion. No pneumothorax. Cardiomediastinal contours: Unremarkable Bones: Unremarkable IMPRESSION: 1. No acute disease. ATED BY: MAUREEN NASH MD DICTATED DATE/TIME: 09/05/24 163 SIGNED BY: MAUREEN NASH MD SIGNED DATE/TIME: 09/05/24 163 CC: X-Ray, Labs, Meds, VS Comment Patient will be admitted for observation, patient is two months postop of a quadruple bypass. Procedure was done at [facility] [place]. Recommend cardiology consult in the morning Patient was clinically stable Imaging: X-rays and CT scans were reviewed and interpreted by this provider, imaging shows no fractures and no pathological disease. Pending radiology review. Laboratory: Labs reviewed and interpreted by this provider. No significant abnormalities noted. Patient has prior medical visits reviewed. Med reconciliation performed Vital signs reviewed Time of 1ST Reevaluation: 16:50 Reevaluation 1ST: Unchanged Patient Education/Counseling: Diagnosis, Treatment Family Education/Counseling: No Family Present Departure 1 Departure Time of Disposition: 19:14 Impression: Primary Impression: Shortness of breath Additional Impressions: Generalized weakness S/P CABG (coronary artery bypass graft) Disposition: ADMITTED INPATIENT Condition: Fair Discharged With: Self Critical Care Note Critical Care Time?: No Stability Stability form required: No Heart Score Heart Score: Heart Score Response (Comments) Value History N/A 0 EKG N/A 0 Age N/A 0 Risk Factors N/A 0 Troponin N/A 0 Total 0 I personally scribed for BRUCE RIOS MD ([email or web address]) on 09/05/24 at 18:15. Electronically submitted by Mark Dacosta ([email or web address]). BRUCE RIOS MD Sep 05, 2024 18:15 NICOLE AMADOR Sep 05, 2024 19:15
[2024-09-05] MEDS ORDERED: DEXTROSE (50%) 50ML SYRG IV PRN (23:15)
--- NOTE | 2024-09-05 23:15 | DVHHPRES ---
History of Present Illness Resident Creating Document: ROHIT DONALD RESIDENT History of Present Illness This is a 64-year-old male with past medical history of hypertension, hyperlipidemia, type 2 diabetes mellitus, CVA, status post CABG presented to the ED with a the complaint of flu-like symptoms and cough for 3 days prior to this admission. The patient states that since 3 days he has runny nose, low-grade fever, generalized body ache, and dry cough and also mentioned positive sick contact. The patient denies chest pain, shortness of breath, dizziness, diaphoresis, abdominal pain, nausea, vomiting or any change in bowel and bladder movement. Past Medical History Hypertension, hyperlipidemia, type 2 diabetes mellitus, CVA, Past Surgical History CABG, Rt shoulder surgery. Family History Family history significant for heart disease Past Social History Lives with family Nonsmoker, moderate drinker and quit 2 months ago, never tried any drugs Review of Systems Constitutional: Yes: Fever, Chills, Malaise Eyes: No: Pain, Vision change, Conjunctivae inflammation, Eyelid inflammation, Other, Redness ENT: Nose discharge, Nose congestion; No: Ear pain, Ear discharge, Nose pain, Mouth pain, Mouth swelling, Throat pain, Throat swelling, Other Respiratory: Cough, Shortness of breath; No: Dry, SOB with excertion, Wheezing, Hemoptysis, Pleuritic Pain, Sputum, Wheezing, Other Cardiovascular: No: Chest Pain, Palpitations, Orthopnea, Paroxysmal Noc. Dyspnea, Edema, Lt Headedness, Other Gastrointestinal: No: Nausea, Vomiting, Abdominal Pain, Diarrhea, Constipation, Melena, Hematochezia, Other Genitourinary: No Dysuria, No Frequency, No Incontinence, No Hematuria, No Retention, No Other Musculoskeletal: No: other, neck pain, shoulder pain, arm pain, back pain, hand pain, leg pain, foot pain Skin: No: Rash, Lesions, Jaundice, Bruising, Other Neurological: No: Weakness, Numbness, Incoordination, Change in speech, Confusion, Seizures, Other Allergies: Coded Allergies: NO KNOWN ALLERGIES (Unverified , 12/22/23) Exam Vital Signs Vital Signs Date Time Temp Pulse Resp B/P (MAP) Pulse Ox O2 Delivery O2 Flow Rate FiO2 09/05/24 16:00 98.0 83 18 131/70 (90) 98 Exam Physical examination: General Appearance: Alert, Oriented X3, Cooperative, mild distress HEENT: Atraumatic, PERRLA, EOMI, Mucous membrane moist/pink Respiratory: Clear to auscultation, Normal air movement Cardiovascular: Regular rate, Normal S1, Normal S2, No murmurs, no chest wall tenderness Abdominal: Normal bowel sounds, Soft, No tenderness, No hepatospenomegaly, No masses Extremities: No clubbing, No cyanosis, No edema, Normal pulses, No tenderness/swelling Skin: Scar caro of CABG in the middle of the sternum, No rashes, No breakdown, No significant lesion Neuro: Normal gait, Normal speech, Strength at 5/5 X4 ext, Normal tone, Sensation intact, grossly intact cranial nerves. Psych/Mental Status: Mental status NL, Mood NL Labs/Xrays Labs Test 09/05/24 17:40 09/05/24 16:32 Range/Units Troponin I High Sensitivity 5 </=54 ng/L White Blood Count 6.2 4.4-10.8 10^3/uL Red Blood Count 5.42 4.5-5.90 10^6/uL Hemoglobin 15.6 13.5-17.5 g/dL Hematocrit 46.0 41.0-53.0 % Mean Corpuscular Volume 84.8 80.0-100.0 fL Mean Corpuscular Hemoglobin 28.8 28.0-32.0 pg Mean Corpuscular Hemoglobin Concent 33.9 32.0-36.0 g/dL Red Cell Distribution Width 14.8 H 11.8-14.3 % Platelet Count 212 140-450 10^3/uL Mean Platelet Volume 9.1 6.9-10.8 fL Neutrophils (%) (Auto) 75.3 37.0-80.0 % Lymphocytes (%) (Auto) 13.6 10.0-50.0 % Monocytes (%) (Auto) 10.3 0.0-12.0 % Eosinophils (%) (Auto) 0.3 0.0-7.0 % Basophils (%) (Auto) 0.5 0.0-2.0 % Neutrophils # (Auto) 4.7 1.6-8.6 10 ^3/uL Lymphocytes # (Auto) 0.8 0.4-5.4 10 ^3/uL Monocytes # (Auto) 0.6 0-1.3 10 ^3/uL Eosinophils # (Auto) 0 0-0.8 10 ^3/uL Basophils # (Auto) 0 0-0.2 10 ^3/uL Nucleated Red Blood Cells 0.0 % Sodium Level 130 L 136-145 mmol/L Potassium Level 4.6 3.5-5.1 mmol/L Chloride Level 97 L 98-107 mmol/L Carbon Dioxide Level 23 20-31 mmol/L Anion Gap 10 5-15 Blood Urea Nitrogen 39 H 9-23 mg/dL Creatinine 2.43 H 0.700-1.30 mg/dL Glomerular Filtration Rate Calc 29 >90 mL/min BUN/Creatinine Ratio 16.0 10.0-20.0 Serum Glucose 340 H 74-106 mg/dL Calcium Level 10.0 8.7-10.4 mg/dL Total Bilirubin 0.4 0.2-1.0 mg/dL Aspartate Amino Transferase (AST) 34 13-40 U/L Alanine Aminotransferase (ALT) 45 H 7-40 U/L Alkaline Phosphatase 118 H 46-116 U/L B-Type Natriuretic Peptide 29.95 0-100 pg/mL Total Protein 8.4 H 5.7-8.2 g/dL Albumin 4.9 H 3.2-4.8 g/dL Assessment/Plan Assessment/Plan Assessment and plan: # Flu-like symptoms, sore throat; rule out infectious etiology - CXR revealed no acute cardiopulmonary disease - Ordered flu, COVID - Tamiflu 75 mg p.o. once followed by 30 mg p.o. b.i.d. because of renal dosing due to TAWANA - Azithromycin 500 mg p.o. daily # Type 2 diabetes mellitus, hemoglobin A1c 8.4 - Lantus 10 units at q.a.m. and mild sliding scale of insulin # TAWANA, secondary to hemodynamically mediated/VMN - Ordered urine creatinine, urine sodium and urine protein - IV normal saline 1 L at 75 mL once - monitor BMP # PUD prophylaxis - Pepcid 20 mg p.o. daily # DVT prophylaxis - Heparin 5000 units SC b.i.d. Goal of care discussed with the patient for more than 20 minutes full code Plan discussed with Dr. Henson Plan discussed with: Patient, Other My Orders Orders - ROHIT DONALD RESIDENT Procedure Category Date Status Time Admit ADMIT 09/05/24 Transmitted 21:52 Admit ADMIT 09/05/24 Transmitted 21:57 Date of Service: Sep 05, 2024 Billing Provider: ULYSSES HENSON MD Common Visit Codes: [id number] INP/OBS CARE (HIGH) Secondary Visit Codes: 31363-[id number] CARE PLAN 30 MINUTES ROHIT DONALD RESIDENT Sep 05, 2024 23:15 ULYSSES HENSON MD Sep 06, 2024 11:22
[2024-09-06] VITALS (8 sets, daily range): BP systolic 131–133; BP diastolic 71–75; PULSE 65–73; RESP 14–20; TEMP 98.1–98.6; O2SAT 94–100
[2024-09-06] MEDS: AZITHROMYCIN 250 MG TAB PO ONE (02:13)
[2024-09-06] MEDS: OSELTAMIVIR 75 MG CAP PO ONE (02:14)
[2024-09-06] MEDS ORDERED: DEXTROSE (50%) 50ML SYRG IV PRN (04:45)
[2024-09-06] MEDS ORDERED: InsuLIN REG 1unit/0.01ml Soln (100units/ml) SC SCH (07:00)
[2024-09-06] MEDS: InsuLIN REG 1unit/0.01ml Soln (100units/ml) SC SCH (07:05)
[2024-09-06] MEDS: INSULIN LANTUS (GLARGINE) 1 /0.01ml (100units/ml) SC SCH (07:06)
[2024-09-06] MEDS: ACCU-CHEK COMFORT CURVE STRIP VI SCH ×2 (07:08)
[2024-09-06] MEDS: HEPARIN SODIUM (PORCINE) 5000 UNITS/ML 1ML VIAL SC SCH (10:00)
[2024-09-06] MEDS ORDERED: OSELTAMIVIR 75 MG CAP PO SCH (10:00)
[2024-09-06] MEDS ORDERED: ACETAMINOPHEN 325 MG TAB PO PRN (10:45)
[2024-09-06] MEDS ORDERED: HYDROcodone-ACET 5/325MG TAB PO PRN (10:45)
[2024-09-06] MEDS: FAMOTIDINE 20 MG TAB PO SCH (11:03)
[2024-09-06 11:38] LABS: Rapid Influenza A Positive (Negative); Rapid Influenza B Negative (Negative)
[2024-09-06 11:39] LABS: COVID19 ANTIGEN SOFIA FIA NEGATIVE (NEGATIVE)
[2024-09-06] MEDS ORDERED: OSELTAMIVIR 30 MG CAP PO SCH (12:30)
[2024-09-06] MEDS: ASPirin 81 mg TAB PO SCH (13:32)
[2024-09-06] MEDS: CLOPIDOGREL BISULFATE 75 MG TAB PO SCH (13:33)
[2024-09-06] MEDS: LISINOPRIL 20 MG TAB PO SCH (13:37)
[2024-09-06] MEDS: ENOXAPARIN SOD 40 MG/0.4 ML SYRINGE SC SCH (13:37)
--- NOTE | 2024-09-06 15:08 | DVH ---
INDICATION: TAWANA TECHNIQUE: Multiple real-time sonographic images of the kidneys and bladder were obtained. COMPARISON: None FINDINGS: RIGHT kidney measures 10.6 cm in length. No hydronephrosis. LEFT kidney measures 10.4 cm in length. No hydronephrosis. No large intraluminal masses are seen in the bladder. Bladder is mostly contracted and suboptimally evaluated. Prostatomegaly, 90 cc. IMPRESSION: No hydronephrosis.
[2024-09-06 18:04] LABS: Urine Bacteria None Seen /hpf (None Seen); Urine WBC None Seen /hpf (0 - 3)
[2024-09-06 18:14] LABS: Sodium Urine 56 mmol/L (40-220)
[2024-09-06 18:18] LABS: Urine Blood Negative /uL (Negative); Urine Clarity Clear (Clear); Urine Color Yellow (Yellow); Urine Protein, UAD 1+ (Negative); Urine Specific Gravity 1.021 (1.001-1.035); Urine Squamous Epithelial Cell None Seen /hpf (<5); Urine Urobilinogen Normal (Negative); Urine pH 5.5 (5.0-9.0)
[2024-09-06 18:19] LABS: Protein, Urine 91.3 mg/dL (1-14)
[2024-09-06] MEDS: amLODIPine BESYLATE 5 MG TAB PO SCH (18:19)
[2024-09-06 18:21] LABS: Creatinine, Urine 138.11 mg/dL (30.0-125.0)
[2024-09-06 18:23] LABS: Amphetamine Screen, Urine Neg (NEGATIVE); Barbiturate Scree,Urine Neg (NEGATIVE); Benzodiazephine Screen, Urine Neg (NEGATIVE); Cannabinoid Screen, Urine Neg (NEGATIVE); Cocaine Screen, Urine Neg (NEGATIVE); Opiate Scree,Urine Neg (NEGATIVE); Phencyclidine Screen, Urine Neg (NEGATIVE)
--- NOTE | 2024-09-06 18:32 | DVHPNRES ---
Progress Note Date Seen: Sep 06, 2024 Resident Creating Document: MERARI COLON REINIER Has the PT tested + for MRSA If YES, has PT been informed?: No Medical Necessity Reason Pt with a Central, PICC or Fol: No Subjective Review of Systems This is a 64-year-old male with a past medical history of hypertension, hyperlipidemia, type 2 diabetes mellitus, CVA, and status post CABG, who presented to the ED with a complaint of flu-like symptoms and cough for 3 days prior to this admission. The patient states that for the past 3 days he has had a runny nose, low-grade fever, generalized body aches, and a dry cough, and also mentioned a positive sick contact. The patient denies chest pain, shortness of breath, dizziness, diaphoresis, abdominal pain, nausea, vomiting, or any change in bowel and bladder movements. PMHx: Hypertension, hyperlipidemia, type 2 diabetes mellitus, CVA PSHx: CABG 3 month back, right shoulder surgery Family history: Noncontributory Social history: Patient lives with the family, denies smoking drink alcohol or any drug use Allergic history: Noncontributing Today, patient seen and examined at the bedside. Patient is feeling better since admission with still complaining shortness of breath and cough. Patient reports: No new complaints, Feels better Changes from previous H/P or p: Changes Objective vital signs Vital Sign Date Time Temp Pulse Resp B/P (MAP) Pulse Ox O2 Delivery O2 Flow Rate FiO2 09/06/24 18:19 121/76 09/06/24 16:00 70 14 94 Room Air* 0 21 09/06/24 15:05 98.1 98.1 medications Current Medications Medications Dose Ordered Sig/Hayes Route Start Time Stop Time Status Last Admin Dose Admin Azithromycin 500 mg DAILY@0000 PO 09/07/24 00:00 Diagnostic Test (Pha) 1 strip ACHS 09/06/24 07:00 09/06/24 17:08 1 STRIP Insulin Glargine 10 units QAM SC 09/06/24 07:00 09/06/24 07:06 10 UNITS Diagnostic Test (Pha) 1 strip ACHS 09/06/24 07:00 09/06/24 17:08 1 STRIP Insulin Human Regular ACHS SC 09/06/24 07:00 09/06/24 17:14 3 UNITS Dextrose 50 ml UD PRN IV 09/06/24 04:45 Famotidine 20 mg DAILY PO 09/06/24 10:00 09/06/24 11:03 20 MG Heparin Sodium (Porcine) 5,000 units Q12HR SC 09/06/24 10:00 Hold Amlodipine Besylate 10 mg QPM PO 09/06/24 18:00 09/06/24 18:19 10 MG Acetaminophen 650 mg Q6HP PRN PO 09/06/24 10:45 Acetaminophen/ Hydrocodone Bitart 1 tab Q6HPRN PRN PO 09/06/24 10:45 Clopidogrel Bisulfate 75 mg DAILY PO 09/06/24 11:45 09/06/24 13:33 75 MG Enoxaparin Sodium 40 mg DAILY SC 09/06/24 11:45 09/06/24 13:37 40 MG Aspirin 81 mg DAILY PO 09/06/24 13:00 09/06/24 13:32 81 MG Lisinopril 40 mg DAILY PO 09/06/24 13:00 09/06/24 13:37 40 MG Oseltamivir Phosphate 30 mg BID PO 09/06/24 22:00 09/11/24 21:59 Ipratropium [place] 0.5 mg Q6HR NEB 09/06/24 18:00 Albuterol 2.5 mg Q6HR NEB 09/06/24 18:00 laboratory and microbiology Laboratory Tests 09/05/24 16:32 Test 09/05/24 16:32 Range/Units Serum Glucose 340 H 74-106 mg/dL Labs and/or images reviewed: Labs reviewed by me, Image(s) reviewed by me Problem List/Assessment/Plan Problem List/Assessment/Plan Acute exacerbation of COPD Influenza type a Chest x-ray shows bilateral hyperinflated lung, flattened diaphragm with prominent bronchovascular marking Influenza type a, and COVID-19 are negative Empiric antibiotic, azithromycin Nebulization Oseltamivir 75 mg b.i.d. History of coronary artery disease Status post CABG, 3 months back EKG, and shows no acute ST or T-wave changes, serial trop is normal Continue aspirin, clopidogrel Diabetes mellitus type 2 Insulin according to mild SS TAWANA, on CKD grade 1, likely hemodynamically mediated Kidney ultrasound shows no abnormalities Hypertension Continue amlodipine and lisinopril DIET: Cardiac diet DVT PROPHYLAXIS: Lovenox GI PROPHYLAXIS:: Famotidine 20 mg p.o. daily BOWEL REGIMEN: Normal bowel movement CODE STATUS: Goal of care discussed for more than 23 minutes, full code DISPOSITION: Med surge Patient's status discussed with the patient. Case discussed with Dr. Delgado Plan discussed with: Patient, Other (RN) My Orders My Orders Orders - MERARI COLON RESDICALLUM Procedure Category Date Status Time Comprehensive LAB 09/07/24 Verified Metabolic Panel 04:00 Complete Blood Count LAB 09/07/24 Verified 04:00 Amlodipine Tablet PHA 09/06/24 In Process (Norvasc Tablet) 18:00 Acetaminophen Tablet PHA 09/06/24 In Process (Tylenol Tablet) 10:45 Hydrocodone-Acet PHA 09/06/24 In Process 5/325mg Tab ([place] 10:45 Clopidogrel Bisulfate PHA 09/06/24 In Process (Plavix) 11:45 Enoxaparin Sodium PHA 09/06/24 In Process (Lovenox) 11:45 Aspirin Tablet PHA 09/06/24 In Process 13:00 Lisinopril Tablet PHA 09/06/24 In Process (Zestril Tablet) 13:00 Kidney US 09/06/24 Resulted 14:32 Ipratropium Medneb PHA 09/06/24 In Process (Atrovent Medneb) 18:00 Albuterol Medneb PHA 09/06/24 In Process (Ventolin Medneb) 18:00 Date of Service: Sep 06, 2024 Billing Provider: TERRI BUCIO MD Common Visit Codes: [id number] INP/OBS CARE(HIGH) MERARI COLON RESDIENT Sep 06, 2024 18:32 TERRI BUCIO MD Sep 09, 2024 09:47
[2024-09-06] MEDS: ALBUTEROL SULF 2.5 MG/0.5ML(0.5%) NEB SOLN NEB SCH (19:22)
[2024-09-06] MEDS: IPRATROPIUM BROM 0.5 MG/2.5ML INH SOL NEB SCH (19:22)
[2024-09-07] VITALS (13 sets, daily range): BP systolic 101–112; BP diastolic 46–73; PULSE 69–92; RESP 16–18; TEMP 36.3; O2SAT 95–100
[2024-09-07] MEDS: OSELTAMIVIR 30 MG CAP PO SCH (00:05)
[2024-09-07] MEDS: AZITHROMYCIN 250 MG TAB PO SCH (00:08)
[2024-09-07] MEDS: MELATONIN 5 MG TAB PO ONE (00:30)
[2024-09-07] MEDS: BACLOFEN 10 MG TAB PO ONE (01:13)
[2024-09-07 07:34] LABS: Basophils # (auto) 0 10 ^3/uL (0-0.2); Basophils % (auto) 0.4 % (0.0-2.0); Eosinophils # (auto) 0 10 ^3/uL (0-0.8); Eosinophils % (auto) 0.7 % (0.0-7.0); Hematocrit 41.9 % (41.0-53.0); Hemoglobin 14.4 g/dL (13.5-17.5); Lymphocytes % (auto) 28.6 % (10.0-50.0); Mean Corpuscular Hemoglobin 28.5 pg (28.0-32.0); Mean Corpuscular Hgb Conc. 34.3 g/dL (32.0-36.0); Mean Corpuscular Volume 83.3 fL (80.0-100.0); Monocytes # (auto) 0.5 10 ^3/uL (0-1.3); Monocytes % (auto) 14.1 % (0.0-12.0); Neutrophils % (auto) 56.2 % (37.0-80.0); Nucleated Red Blood Cells % 0.4 %; Platelet Count (auto) 173 10^3/uL (140-450); Red Blood Cells 5.03 10^6/uL (4.5-5.90); Red Cell Distribution Width 14.9 % (11.8-14.3); White Blood Cell 3.5 10^3/uL (4.4-10.8)
[2024-09-07 07:43] LABS: Alanine Aminotransferase 38 U/L (7-40); Albumin 4.2 g/dL (3.2-4.8); Alkaline Phosphatase 107 U/L (46-116); Anion Gap 10 (5-15); Aspartate Aminotransferase 24 U/L (13-40); BUN/Creatinine Ratio 22.8 (10.0-20.0); Bilirubin, Total 0.4 mg/dL (0.2-1.0); Calcium 9.6 mg/dL (8.7-10.4); Carbon Dioxide 25 mmol/L (20-31); Chloride 100 mmol/L (98-107); Potassium 4.2 mmol/L (3.5-5.1)
[2024-09-07 07:44] LABS: Total Protein 7.3 g/dL (5.7-8.2)
[2024-09-07 07:56] LABS: Blood Urea Nitrogen 37 mg/dL (9-23); Glucose 119 mg/dL (74-106); Sodium 135 mmol/L (136-145)
[2024-09-07] MEDS ORDERED: ENOXAPARIN SOD 40 MG/0.4 ML SYRINGE SC SCH (10:00)
[2024-09-07] MEDS ORDERED: PATIENTS OWN MEDICATION (Lisinopril 1 TAB) PO SCH (10:00)
[2024-09-07] MEDS ORDERED: OSELTAMIVIR 30 MG CAP PO SCH (10:00)
[2024-09-07] MEDS ORDERED: CLOPIDOGREL BISULFATE 75 MG TAB PO SCH (10:00)
[2024-09-07] MEDS ORDERED: PATIENTS OWN MEDICATION (Aspirin (Chewable Aspirin) 1 TAB) PO SCH (10:00)
[2024-09-07] MEDS ORDERED: AZIT500T66 PO (11:39)
[2024-09-07] MEDS ORDERED: OSEL75CA5 PO (11:39)
[2024-09-07] MEDS ORDERED: PRED20TA2 PO (11:39)
[2024-09-07 12:44] LABS: Urine Bacteria None Seen /hpf (None Seen)
[2024-09-07 13:06] LABS: Urine Blood Negative /uL (Negative); Urine Clarity Clear (Clear); Urine Color Yellow (Yellow); Urine Hyaline Cast FEW /lpf (0 - 2); Urine Mucus FEW (None Seen); Urine Protein, UAD 1+ (Negative); Urine Specific Gravity 1.021 (1.001-1.035); Urine Squamous Epithelial Cell None Seen /hpf (<5); Urine Urobilinogen Normal (Negative); Urine WBC 2 /hpf (0 - 3); Urine pH 5.5 (5.0-9.0)
--- NOTE | 2024-09-07 15:54 | DVHDSRES ---
Discharge Summary Date of Admission Resident Creating Document: MERARI COLON RESDIENT Sep 05, 2024 at 21:52 Date of Discharge: Sep 07, 2024 Admitting Diagnosis Flu-like symptoms Labs/Diagnostic Data: Laboratory Results Test 09/07/24 12:57 09/07/24 11:40 09/07/24 06:16 09/06/24 17:22 POC Glucose 258 mg/dl (70-106) Urine Color Yellow (Yellow) Urine Clarity Clear (Clear) Urine pH 5.5 (5.0-9.0) Urine Specific [place] 1.021 (1.001-1.035) Urine Protein 1+ (Negative) Urine Ketones Negative (Negative) Urine Blood Negative /uL (Negative) Urine Nitrite Negative (Negative) Urine Bilirubin Negative (Negative) Urine Urobilinogen Normal mg/dL (Negative) Urine Leukocyte Esterase Negative /uL (Negative) Urine RBC 1 /hpf (0 - 3) Urine WBC 2 /hpf (0 - 3) Urine Squamous Epithelial Cells None seen /hpf (<5) Urine Bacteria None seen /hpf (None Seen) Urine Hyaline Casts Few /lpf (0 - 2) Urine Mucus Few (None Seen) Urine Glucose Normal mg/dL (Normal) White Blood Count 3.5 10^3/uL (4.4-10.8) Red Blood Count 5.03 10^6/uL (4.5-5.90) Hemoglobin 14.4 g/dL (13.5-17.5) Hematocrit 41.9 % (41.0-53.0) Mean Corpuscular Volume 83.3 fL (80.0-100.0) Mean Corpuscular Hemoglobin 28.5 pg (28.0-32.0) Mean Corpuscular Hemoglobin Concent 34.3 g/dL (32.0-36.0) Red Cell Distribution Width 14.9 % (11.8-14.3) Platelet Count 173 10^3/uL (140-450) Mean Platelet Volume 9.2 fL (6.9-10.8) Neutrophils (%) (Auto) 56.2 % (37.0-80.0) Lymphocytes (%) (Auto) 28.6 % (10.0-50.0) Monocytes (%) (Auto) 14.1 % (0.0-12.0) Eosinophils (%) (Auto) 0.7 % (0.0-7.0) Basophils (%) (Auto) 0.4 % (0.0-2.0) Neutrophils # (Auto) 2.0 10 ^3/uL (1.6-8.6) Lymphocytes # (Auto) 1.0 10 ^3/uL (0.4-5.4) Monocytes # (Auto) 0.5 10 ^3/uL (0-1.3) Eosinophils # (Auto) 0 10 ^3/uL (0-0.8) Basophils # (Auto) 0 10 ^3/uL (0-0.2) Nucleated Red Blood Cells 0.4 % Sodium Level 135 mmol/L (136-145) Potassium Level 4.2 mmol/L (3.5-5.1) Chloride Level 100 mmol/L (98-107) Carbon Dioxide Level 25 mmol/L (20-31) Anion Gap 10 (5-15) Blood Urea Nitrogen 37 mg/dL (9-23) Creatinine 1.62 mg/dL (0.700-1.30) Glomerular Filtration Rate Calc 47 mL/min (>90) BUN/Creatinine Ratio 22.8 (10.0-20.0) Serum Glucose 119 mg/dL (74-106) Calcium Level 9.6 mg/dL (8.7-10.4) Total Bilirubin 0.4 mg/dL (0.2-1.0) Aspartate Amino Transferase (AST) 24 U/L (13-40) Alanine Aminotransferase (ALT) 38 U/L (7-40) Alkaline Phosphatase 107 U/L (46-116) Total Protein 7.3 g/dL (5.7-8.2) Albumin 4.2 g/dL (3.2-4.8) Urine Osmolality 661 mOsm/kg Urine Creatinine 138.11 mg/dL (30.0-125.0) Urine Sodium 56 mmol/L (40-220) Urine Total Protein 91.3 mg/dL (1-14) Urine Opiates Screen Neg (NEGATIVE) Urine Fentanyl Screen Neg (NEGATIVE) Urine Barbiturates Screen Neg (NEGATIVE) Urine Phencyclidine Screen Neg (NEGATIVE) Urine Amphetamines Screen Neg (NEGATIVE) Urine Benzodiazepines Screen Neg (NEGATIVE) Urine Cocaine Screen Neg (NEGATIVE) Urine Cannabinoids Screen Neg (NEGATIVE) Test 09/06/24 09:40 09/05/24 17:40 09/05/24 16:32 Influenza Type A Antigen Positive (Negative) Influenza Type B Antigen Negative (Negative) SARS-CoV-2 Antigen (Rapid) Negative (NEGATIVE) Troponin I High Sensitivity 5 ng/L (</=54) Hemoglobin A1c 8.4 % A1C (<5.7) Serum Osmolality 298 mOsm/kg (278-298) B-Type Natriuretic Peptide 29.95 pg/mL (0-100) Other Laboratory Tests 09/07/24 06:16 Brief Hx & Hospital Course: This is a 64-year-old male with a past medical history of hypertension, hyperlipidemia, type 2 diabetes mellitus, CVA, and status post CABG, who presented to the ED with a complaint of flu-like symptoms and cough for 3 days prior to this admission. The patient states that for the past 3 days he has had a runny nose, low-grade fever, generalized body aches, and a dry cough, and also mentioned a positive sick contact. The patient denies chest pain, shortness of breath, dizziness, diaphoresis, abdominal pain, nausea, vomiting, or any change in bowel and bladder movements. His past medical history includes hypertension, hyperlipidemia, type 2 diabetes mellitus, and CVA. His past surgical history includes CABG 3 months ago and right shoulder surgery. His family history is noncontributory. Socially, the patient lives with his family and denies smoking, drinking alcohol, or any drug use. His allergic history is noncontributory. Chest x-ray was showing bilateral hyperinflated lung, flattened diaphragm with prominent bronchovascular marking. The patient was put on acute exacerbation of COPD treatment, given empiric antibiotic azithromycin, nebulized, and given oseltamivir for influenza type A. EKG was showing no acute ST or T-wave changes, serial trop I was normal. During hospital admission home medication including aspirin, clopidogrel, and insulin were given to the patient. Patient also had TAWANA, likely due to hemodynamically mediated, during hospital admission the TAWANA was improved. Home medication for hypertension including amlodipine and atorvastatin were continued. On 09/07, the patient was clinically and hemodynamically stable. The patient h ad no symptoms. Discharge plan discussed with the patient with the patient was discharged. discharge plan: tablet azithromycin 500 mg daily for 5 days Prednisone 40 mg daily for 5 days tablet Tamiflu 75 mg b.i.d. for 4 days Follow up with the PCP within 1 week after discharge. Follow up with the discharge Clinic within 1 week after discharge Operations or Procedures [place] [address] Ph: [phone] DIAGNOSTIC IMAGING Diagnostic Imaging Report : [id number] Signed PATIENT: BETSY ASIF ACCT: [id number] UNIT: [id number] : 1960 LOC: ER ROOM / BED: / AGE / SEX: 64 / M ADM STATUS: REG ER SERVICE [id number] ORDERING PHYSICIAN: NICOLE AMADOR PROCEDURE(s): CXRP - CHEST PORTABLE REASON: sob ORDER NUMBER(s): [id number], ACCESSION NUMBER(s): [id number] CHEST RADIOGRAPH Indication: sob Technique: Single frontal view of the chest was obtained COMPARISON: XY CHEST PORTABLE on DOS: 03/14/24 FINDINGS: Lines and Tubes: Sternal wires in place Lungs: Clear Pleura: No effusion. No pneumothorax. Cardiomediastinal contours: Unremarkable Bones: Unremarkable IMPRESSION: 1. No acute disease. ATED BY: MAUREEN NASH MD DICTATED DATE/TIME: 09/05/241633 SIGNED BY: MAUREEN NASH MD SIGNED DATE/TIME: 09/05/24 163 CC: Condition at Discharge: Good Final Diagnosis/Problems List Shortness of breaths likely due to Acute exacerbation of COPD Acute pneumonitis Influenza type a History of coronary artery disease Status post CABG, 3 months back Diabetes mellitus type 2 TAWANA, on CKD grade 1, likely hemodynamically mediated Hypertension Discharge Disposition: Home Discharge Instruct/Medications Diet: Cardiac 2g Na,low cholest Activity: No Restrictions, As Tolerated Follow Up/Referral: Following with the PCP within 1 week of the discharge. Medications: Azithromycin 500 mg daily for 5 days Tablet prednisone 40 mg daily for 5 days Tablet Tamiflu 75 mg b.i.d. for 4 days Discharge Statement: "Patient was advised to return to the ER or call 911 if any headaches, dizziness, shortness of breath, chest pain, abdominal pain, bleeding, fevers, or worsening of medical condition. Patient was counseled about treatment plan, medications, possible side effects, patientverbalized understanding. All questions were answered to the best of my ability. This discharge took greater then 30 minutes in planning, reviewing documentation, counseling the patient, and discussing with other team members." ASSESSMENT ASSESSMENT Assessment Acute exacerbation of COPD MERARI COLON Sep 07, 2024 15:54
[2024-09-08 10:34] LABS: Hepatitis B Surface Antigen Negative (Negative); Hepatitis C Antibody Negative (Negative)
--- NOTE | 2024-09-14 07:05 | ECG ---
[facility] Test Date: 2024-09-05 Test Time: 15:42:22 Pat Name: BETSY ASIF Department: ER Room: 0239 Gender: M [employer] Consultant: ELIZABETH : 1960 Requested By: NICOLE AMADOR Order Number: [id number] Reading MD: Measurements Intervals Raymond Rate: 74 P: 71 WA: 226 QRS: 25 QRSD: 100 T: -29 QT: 549 QTc: 610 Interpretive Statements Sinus rhythm Prolonged WA interval Posterior infarct, old Prolonged QT interval Please click the below link to view image of tracing.
== END 2024-09-07 16:06 | disposition home or self-care (01) | DRG 205 ==
LOC: ER 15:02 → OVERFLOW 21:52 → EAST 09-06 22:06
PROVIDERS: ADMIT Student in an Organized Health Care Education/Training Program; ATTEND Emergency Medicine
DX: J98.4 Other disorders of lung (principal); N17.0 Acute kidney failure with tubular necrosis; J44.1 Chronic obstructive pulmonary disease with (acute) exacerbation; E78.5 Hyperlipidemia, unspecified; I12.9 Hypertensive chronic kidney disease with stage 1 through stage 4 chronic kidney disease, or unspecified chronic kidney disease; Z20.822 Contact with and (suspected) exposure to COVID-19; I25.10 Atherosclerotic heart disease of native coronary artery without angina pectoris; E11.22 Type 2 diabetes mellitus with diabetic chronic kidney disease; N18.1 Chronic kidney disease, stage 1; Z86.73 Personal history of transient ischemic attack (TIA), and cerebral infarction without residual deficits; Z79.1 Long term (current) use of non-steroidal anti-inflammatories (NSAID); Z79.899 Other long term (current) drug therapy; Z79.4 Long term (current) use of insulin; Z95.1 Presence of aortocoronary bypass graft; J10.1 Influenza due to other identified influenza virus with other respiratory manifestations
CPT/HCPCS: 36415; 71045; 76775; 80053; 80307; 81001; 82570; 82962; 83036; 83880; 83930; 83935; 84156; 84300; 84484; 85025; 86803; 87340; 87426; 87804; 93005; 94640; G0378; G9035; J1815

== ENCOUNTER → 2025-02-28 | Outpatient (CLI) | payer MEDICARE, MEDICAID ==
[~2025-02-28] MED LIST changes: +AZIT500T66 PO; +OSEL75CA5 PO; +PRED20TA2 PO
== END | disposition home or self-care (01) ==
LOC: LAB 10:18 → EDSTATUS 03-02 07:00
PROVIDERS: ATTEND Orthopaedic Surgery Sports Medicine
DX: M12.811 Other specific arthropathies, not elsewhere classified, right shoulder (principal); Z53.8 Procedure and treatment not carried out for other reasons; I10 Essential (primary) hypertension; E78.00 Pure hypercholesterolemia, unspecified; Z86.73 Personal history of transient ischemic attack (TIA), and cerebral infarction without residual deficits; E11.9 Type 2 diabetes mellitus without complications; Z79.899 Other long term (current) drug therapy; Z98.890 Other specified postprocedural states
CPT/HCPCS: 86850; 86900; 86901